=== PATIENT | female | born 1960 | race Caucasian/White ===

== ENCOUNTER 2018-01-07 10:02 | Outpatient (REF) | payer SELFPAY ==
[2018-01-07 21:13] LABS: TSH (W/Ref FT4) 5.41 uIU/mL (0.358-3.74)
[2018-01-07 21:49] LABS: FREE T4 0.88 ng/dL (0.76-1.46)
== END 2018-01-07 10:22 ==
LOC: NCHCN 10:02
PROVIDERS: PCP Family Medicine; Visit Provider Family Medicine
DX: E03.9 Hypothyroidism, unspecified (principal)
CPT/HCPCS: 84439; 84443

== ENCOUNTER 2018-03-23 13:27 | Outpatient (REF) | payer OTHER, SELFPAY | END 2018-03-23 13:47 | LOC: NCHCN 13:27 | PROVIDERS: PCP Family Medicine | DX: E11.65 Type 2 diabetes mellitus with hyperglycemia (principal); Z53.8 Procedure and treatment not carried out for other reasons | CPT/HCPCS: 80048 ==

== ENCOUNTER 2019-04-25 09:32 | Outpatient (REF) | payer OTHER, SELFPAY ==
[2019-04-25 23:11] LABS: HCT 31.6 % (36.0-46.0); Mean Corp. HGB Concentration 31.6 g/dL (32.0-36.0); Mean Corpuscular Hemoglobin 27.2 pg (27.0-33.0); Mean Corpuscular Volume 86.1 fL (80-95); Mean Platelet Volume 9.7 fL (8.0-11.0); Platelet Count 334 x1000/uL (130-400); RBC 3.67 m/cumm (4.00-5.20); RBC Distribution Width 14.1 % (11.7-14.6); White Blood Cell Count 8.14 k/cumm (4.4-10.8)
[2019-04-25 23:25] LABS: Ferritin 49 ng/mL (8-252)
[2019-04-25 23:29] LABS: COMMENT (LAB VIEW ONLY) 158.15 mg/dL
== END 2019-04-25 09:52 ==
LOC: NCHCN 09:32
PROVIDERS: PCP Family Medicine; Visit Provider Family Medicine
DX: D64.9 Anemia, unspecified (principal); R53.83 Other fatigue; R80.9 Proteinuria, unspecified; E11.65 Type 2 diabetes mellitus with hyperglycemia
CPT/HCPCS: 85027; 82043; 82570; 82728

== ENCOUNTER 2019-05-25 11:02 | Outpatient (REF) | payer OTHER, SELFPAY ==
[2019-05-25 21:11] LABS: HCT 32.6 % (36.0-46.0); HGB 10.5 g/dL (12.0-15.5); Mean Corp. HGB Concentration 32.2 g/dL (32.0-36.0); Mean Corpuscular Hemoglobin 27.6 pg (27.0-33.0); Mean Corpuscular Volume 85.6 fL (80-95); Mean Platelet Volume 9.5 fL (8.0-11.0); Platelet Count 299 x1000/uL (130-400); RBC 3.81 m/cumm (4.00-5.20); White Blood Cell Count 9.96 k/cumm (4.4-10.8)
[2019-05-25 21:15] LABS: Anion Gap 6.2 mmol/L (3-11); BUN 26 mg/dL (7-18); CO2 29.8 mmol/L (21.0-32.0); CREATININE 1.48 mg/dL (0.55-1.02); Calcium 8.6 mg/dL (8.5-10.1); Chloride 105 mmol/L (98-107); Estimated GFR 35.85 (mL/min/1.73m2); Glucose 67 mg/dL (74-106); Sodium 141 mmol/L (136-145)
== END 2019-05-25 11:22 ==
LOC: NCHCN 11:02
PROVIDERS: PCP Family Medicine; Visit Provider Registered Nurse
DX: D64.9 Anemia, unspecified (principal); I10 Essential (primary) hypertension
CPT/HCPCS: 80048; 85027

== ENCOUNTER 2019-08-04 08:22 | Outpatient (REF) | payer OTHER, SELFPAY ==
[2019-08-04 21:58] LABS: Anion Gap 7.4 mmol/L (3-11); BUN 33 mg/dL (7-18); CO2 27.6 mmol/L (21.0-32.0); CREATININE 1.38 mg/dL (0.55-1.02); Calcium 8.7 mg/dL (8.5-10.1); Chloride 106 mmol/L (98-107); Estimated GFR 38.87 (mL/min/1.73m2); Ferritin 71 ng/mL (8-252); Glucose 71 mg/dL (74-106); Potassium 5.6 mmol/L (3.5-5.1); Sodium 141 mmol/L (136-145); TSH 6.04 uIU/mL (0.36-3.74)
[2019-08-04 22:15] LABS: Hemoglobin A1C 7.8 % (3.8-5.6)
[2019-08-04 22:27] LABS: PHOSPHORUS 4.4 mg/dL (2.6-4.7)
== END 2019-08-04 08:42 ==
LOC: NCHCN 08:22
PROVIDERS: PCP Family Medicine; Visit Provider Family Medicine
DX: N18.3 Chronic kidney disease, stage 3 (moderate) (principal); D64.9 Anemia, unspecified; E03.9 Hypothyroidism, unspecified; E11.65 Type 2 diabetes mellitus with hyperglycemia
CPT/HCPCS: 80048; 82728; 83036; 84100; 84443

== ENCOUNTER 2019-08-23 10:10 | Outpatient (REF) | payer OTHER, SELFPAY ==
[2019-08-23 21:38] LABS: Potassium 5.5 mmol/L (3.5-5.1)
== END 2019-08-23 10:30 ==
LOC: NCHCN 10:10
PROVIDERS: PCP Family Medicine; Visit Provider Family Medicine
DX: E87.5 Hyperkalemia (principal)
CPT/HCPCS: 84132

== ENCOUNTER 2019-09-06 09:14 | Outpatient (REF) | payer OTHER, SELFPAY ==
[2019-09-06 21:31] LABS: Anion Gap 7.6 mmol/L (3-11); BUN 37 mg/dL (7-18); CO2 28.4 mmol/L (21.0-32.0); CREATININE 1.67 mg/dL (0.55-1.02); Calcium 8.6 mg/dL (8.5-10.1); Chloride 104 mmol/L (98-107); Estimated GFR 31.19 (mL/min/1.73m2); Glucose 209 mg/dL (74-106); Potassium 4.9 mmol/L (3.5-5.1); Sodium 140 mmol/L (136-145)
== END 2019-09-06 09:34 ==
LOC: NCHCN 09:14
PROVIDERS: PCP Family Medicine; Visit Provider Family Medicine
DX: E87.5 Hyperkalemia (principal)
CPT/HCPCS: 80048

== ENCOUNTER 2019-09-15 15:06 | Outpatient (REF) | payer OTHER, SELFPAY ==
[2019-09-15 21:05] LABS: HCT 31.7 % (36.0-46.0); HGB 10.3 g/dL (12.0-15.5); Mean Corp. HGB Concentration 32.5 g/dL (32.0-36.0); Mean Corpuscular Hemoglobin 29.2 pg (27.0-33.0); Mean Corpuscular Volume 89.8 fL (80-95); Mean Platelet Volume 10.1 fL (8.0-11.0); Platelet Count 316 x1000/uL (130-400); RBC 3.53 m/cumm (4.00-5.20); RBC Distribution Width 13.7 % (11.7-14.6); White Blood Cell Count 8.42 k/cumm (4.4-10.8)
[2019-09-15 21:25] LABS: Calculated LDL 101 mg/dL (<100); Cholesterol 185 mg/dL (<200); HDL Cholesterol 73 mg/dL (40-60); TSH 3.69 uIU/mL (0.36-3.74); Triglyceride 59 mg/dL (<150)
== END 2019-09-15 15:26 ==
LOC: NCHCN 15:06
PROVIDERS: PCP Family Medicine; Visit Provider Family Medicine
DX: D64.9 Anemia, unspecified (principal); E03.9 Hypothyroidism, unspecified; N18.3 Chronic kidney disease, stage 3 (moderate)
CPT/HCPCS: 80061; 85027; 84443